=== PATIENT | female | born 1980 | race Caucasian/White ===

== ENCOUNTER → 2024-12-26 | Outpatient (CLI) | payer BC, SELFPAY ==
--- NOTE | 2024-12-26 11:20 | MRI_ITS ---
PROCEDURE: SPINE LUMBAR (ROUTINE) 12/26/2024 REASON FOR EXAM: PAIN Low back and bilateral leg pain TECHNIQUE: Multiplanar and multisequence images were obtained without IV contrast administration. COMPARISON: 11/21/2024 lumbar spine x-rays FINDINGS: Vertebrae: Vertebral body heights are maintained. Alignment: Slight stepwise retrolisthesis from L1 to L4. Conus Medullaris: Terminates at the level of L1. L1-2: Disc bulge, eccentric to the right, crowds the traversing right L2 nerve root in the lateral recess. L2-3: Mild disc bulge. L3-4: Mild disc bulge. L4-5: Disc bulge, eccentric to the left, crowds the traversing L5 nerve root in the left lateral recess. Mild bilateral facet arthrosis. L5-S1: Disc bulge and mild bilateral facet arthrosis. Sacrum: SI joints appear normal as visualized. MRI/Spine Lumbar (Routine) IMPRESSION: Disc bulge crowds the traversing right L2 nerve root and traversing left L5 ner ve root in the lateral recesses. Slight stepwise retrolisthesis from L1-L4. Reading [facility]
== END | disposition home or self-care (01) ==
LOC: MRI 11:12
PROVIDERS: PCP Nurse Practitioner Primary Care; Referring Provider Student in an Organized Health Care Education/Training Program; Visit Provider Student in an Organized Health Care Education/Training Program
DX: M54.16 Radiculopathy, lumbar region (principal)
CPT/HCPCS: 72148

== ENCOUNTER → 2025-07-10 | Outpatient (CLI) | payer BC, SELFPAY ==
[2025-07-10 12:30] VITALS: PULSE 100; PULSE 102; PULSE 80; PULSE 84; PULSE 98; PULSE 99; O2SAT 94; O2SAT 96; O2SAT 97; O2SAT 98
--- NOTE | 2025-07-10 12:50 | CT_ITS ---
PROCEDURE: CHEST WITHOUT CONTRAST 07/10/2025 REASON FOR EXAM: LUNG NODULES Shortness of breath. TECHNIQUE: Chest CT without contrast. Coronal and Sagittal reconstruction series were provided. One or more dose reduction techniques were used (e.g., Automated exposure control, adjustment of the mA and/or kV according to patient size, use of iterative reconstruction technique RADIATION DOSE SUMMARY: CTDlvol: 14.47 mGy DLP: 574.81 mGycm COMPARISON: None FINDINGS: Hardware: None Lymph nodes: Small benign-appearing bilateral axillary lymph nodes. No mediastinal or hilar lymph nodes seen. Heart and Vasculature: The heart is nonenlarged. Coronary Artery Calcifications: Absent Lungs and Airways: There is a 5.1 mm well-defined nodule in the peripheral lateral aspect of the right lower lobe as seen on axial image number 83 no definite calcification is seen within it. This may represent a small granuloma. No other abnormality is seen. Pleura: Unremarkable Upper Abdomen: Unremarkable Bones: Unremarkable CT/Chest without Contrast IMPRESSION: Coronary artery calcification (CAC) is is absent 5.1 mm well-defined nodule in the peripheral lateral aspect of the right lower lobe. No definite calcification is seen within it. This may represent a granuloma. Six-month follow-up recommended. Reading Location: [facility]
--- NOTE | 2025-07-12 09:50 | PCM.PSN.6M ---
PSN 6 Minute Walk Test 6 Minute Walk Test 6 Minute Walk Test: 6 Minute Walk Test PSN:6-Minute Walk Test Start: 07/10/25 12:52 Freq: Status: Active Protocol: [id number] Document 07/10/25 12:30 AEH (Rec: 07/10/25 12:55 AEH [email or web address]) 6 Minute Walk Test Date Performed 07/10/25 Time Performed 12:30 Height 5 ft 9 in Weight: 198 lb Weight in Pounds 198.[address]: Assistive device None used: Pre-test Oxygen Delivery Room Air Method Pulse Ox (%) 98 Pulse Rate (60-100 80 beats/min) Dyspnea Zeynep Scale ( 0.5 0-10) Exertion Zeynep Scale 6 (6-20) 1st minute Oxygen Delivery Room Air Method Pulse Ox (%) 98 Pulse Rate (60-100 98 beats/min) 2nd minute Oxygen Delivery Room Air Method Pulse Ox (%) 96 Pulse Rate (60-100 102 H beats/min) 3rd minute Oxygen Delivery Room Air Method Pulse Ox (%) 94 Pulse Rate (60-100 99 beats/min) 4th minute Oxygen Delivery Room Air Method Pulse Ox (%) 98 Pulse Rate (60-100 100 beats/min) 5th minute Oxygen Delivery Room Air Method Pulse Ox (%) 96 Pulse Rate (60-100 99 beats/min) 6th minute Oxygen Delivery Room Air Method Pulse Ox (%) 97 Pulse Rate (60-100 100 beats/min) Dyspnea Zeynep Scale ( 1 0-10) Exertion Zeynep Scale 8 (6-20) Post-test Oxygen Delivery Room Air Method Pulse Ox (%) 98 Pulse Rate (60-100 84 beats/min) Full Laps Walked 20 Partial Lap, Number 16 of Tiles Walked Total Distance 1196 Walked (ft) Interpretation Interpretation: The patient ambulated 1196 feet over the course of 6 minutes beginning on room air without assistive devices. Pretesting oxygen saturation was noted to be 98% on room air. With ambulation, the rena oxygen saturation was 94%. There was no significant exertional oxygen desaturation. Recommendations Recommendations: There is no indication for the use of supplemental oxygen at this time.
== END | disposition home or self-care (01) ==
PROVIDERS: PCP Nurse Practitioner Primary Care; Referring Provider Internal Medicine Critical Care Medicine; Visit Provider Internal Medicine Critical Care Medicine
DX: R91.1 Solitary pulmonary nodule (principal); R06.09 Other forms of dyspnea
CPT/HCPCS: 71250; 94618